=== PATIENT | male | born 2005 | race African-American/Black ===

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

== ENCOUNTER 2025-05-29 15:46 | Inpatient (IN) | payer OTHER ==
[~2025-05-29] VITALS: Ht 172.7 cm; Wt 61.2 kg
--- NOTE | 2025-05-29 16:03 | NUR ---
PACIENTE ALERTA Y ORIENTADO X3, INDICA QUE DESDE HACE KAITLIN SEMANA PRESENTA MOLESTIA EN EL PECHO AL TOSER Y AL SECRECIONES NASALES CON KENDELL. SE REALIZA EKG Y SE MONITOREAN VS.
[2025-05-29] MEDS ORDERED: METHYLPREDNISOLONE SOD SUCC 125 MG VIAL IV SCH (18:45)
[2025-05-29] MEDS ORDERED: PANTOPRAZOLE SODIUM 40 MG/VIAL VIAL IV SCH (18:45)
[2025-05-29] MEDS ORDERED: 0.9 % SODIUM CHLORIDE 1,000 ML IV SCH (18:45)
[2025-05-29] MEDS ORDERED: DEXTROSE 5 % AND 0.9 % NACL 1,000 ML IV SCH (18:45)
[2025-05-29 19:52] LABS: BASO % 0.6 % (0.1-1.2); EOS # 0.66 (0.04-0.54); EOS % 7.8 % (0.7-7.0); LYMPH # 1.31 (1.18-3.74); LYMPH % 15.6 % (19.3-53.1); MEAN PLATELET VOLUME 9.10 fl (9.4-12.4); MONO # 0.57 (0.24-0.82); MONO % 6.8 % (4.7-12.5); NEUT # 5.80 (1.56-6.13); NEUT % 69.0 % (34.0-71.1); RED CELL DISTRIBUTION WIDTH 13.4 % (11.6-14.4)
--- NOTE | 2025-05-29 19:55 | NUR ---
PTE ALERTA,ESTABLE Y ORIENTADO.SE EDUCA SOBRE EL TRATAMIENTO QUE RECIBIRA EN EL HOSPITAL Y BRIANNE REFIERE ENTEDNER.
[2025-05-29 20:16] LABS: INR 1.08
[2025-05-29 20:24] LABS: ALT/SGPT 23.0 U/L (12-78); AST/SGOT 18.0 U/L (15-37); BILIRUBIN TOTAL 0.35 mg/dL (0.3-1.2); BUN CREA RATIO 11.0 (7.0-25.0); CREATININE SERUM 0.97 mg/dL (0.70-1.30); GFR 98.67; GLOBULINA 3.8 G/DL (2.4-3.5); GLUCOSE FASTING 96.0 mg/dL (65-100); OSMOLALITY SERUM 279.0 MOSM/KG (275-295)
[2025-05-29 20:43] LABS: COVID-19 AG NEGATIVE (NEGATIVE)
[2025-05-29] MEDS ORDERED: LEVALBUTEROL HCL 1.25 MG/3 ML SOLUTION IH STA (22:58)
[2025-05-29] MEDS ORDERED: LEVALBUTEROL HCL 1.25 MG/3 ML SOLUTION IH SCH (23:00)
[2025-05-29] MEDS ORDERED: CEFTRIAXONE SODIUM 2,000 MG VIAL IV ONE (23:00)
[2025-05-29] MEDS ORDERED: METHYLPREDNISOLONE SOD SUCC 40 MG VIAL IV SCH (23:15)
--- NOTE | 2025-05-30 01:48 | NUR ---
PTE ALERTA Y ORIENTADO X3 EN COMPANIA SE PATTEN PADRE. SE ADMINISTRA MEDICAMENTO MIGNON ORDEN MEDICA Y BAJO MEDIDAS ASEPTICAS. NO SE OBSERVA REACCION ALERGICA AL MOMENTO. SE NOTIFICAN TR.
[2025-05-30 02:13] LABS: COCAINE NEGATIVE (NEGATIVE); METHADONE NEGATIVE (NEGATIVE); OPIATES NEGATIVE (NEGATIVE); THC ( Cannabinoids) NEGATIVE (NEGATIVE)
--- NOTE | 2025-05-30 02:16 | NUR ---
PTE REHUSA REALIZARSE LOS ABG'S .SE LE NOTIFICA A EL KOBE ALMENDARE[place]. SE MANTIENE BAJO OBSERVACION.
--- NOTE | 2025-05-30 05:27 | NUR ---
SE ORIENTA PACIENTE Y FAMILIAR SOBRE TX MEDICO Y ESTOS REFIEREN ENTENDER Y ACEPTAR EL MISMO. SE PROCEDE A BANDAR MUESTRAS DE LAB. BAJO MEDIDAS ASEPTICAS, DANILO DE EDEMA Y ERITEMA.
--- NOTE | 2025-05-30 07:07 | NUR ---
SE RECIBE PTE ALERTA Y ORIENTADO X3 EN CAMA BAJA CON BARANDAS LEVADAS EN COMPANIA DE FAMILIAR. PTE CANALIZADO EN BRAZO DERECHO CON ANGIO #20 PATENTE DANILO DE EDEMA Y ENROJECIMIENTO. RECIBIENDO D5W/.9NSS BAJANDO A 100MLS/HR. PENDIENTE RE-EVALUACION MEDICA.
--- NOTE | 2025-05-30 08:00 | NUR ---
PTE. COMIENZA CON VOMITOS CON KENDELL. DRA. TAFOYA RE-EVALUA PTE.SE ORIENTA SOBRE TRATAMIENTO, MUESTRA TOMADA Y SE ENVIA AL LABORATORIO.
[2025-05-30 08:21] LABS: BASO % 0.2 % (0.1-1.2); EOS # 0.02 (0.04-0.54); EOS % 0.2 % (0.7-7.0); LYMPH # 0.82 (1.18-3.74); LYMPH % 8.7 % (19.3-53.1); MEAN PLATELET VOLUME 9.40 fl (9.4-12.4); MONO # 0.44 (0.24-0.82); MONO % 4.7 % (4.7-12.5); NEUT # 8.09 (1.56-6.13); NEUT % 86.0 % (34.0-71.1); RED CELL DISTRIBUTION WIDTH 13.5 % (11.6-14.4)
[2025-05-30] MEDS ORDERED: CEFTRIAXONE SODIUM 1,000 MG VIAL IV SCH (10:24)
[2025-05-30 10:34] VITALS: BP 115/68
[2025-05-30] MEDS ORDERED: 0.9 % SODIUM CHLORIDE 1,000 ML IV SCH (10:45)
[2025-05-30] MEDS ORDERED: METHYLPREDNISOLONE SOD SUCC 40 MG VIAL IV SCH ×2 (10:45→18:00)
--- NOTE | 2025-05-30 11:22 | NUR ---
DRA. TAFOYA RE-EVALUA PTE. Y ADMITE A SERVICIO DE DR. WILDER. SE ORIENTA SOBRE TRATAMIENTO, MEDICAMENTOS Y ADMISION . ORDENES DE ADMISION TOMADAS, FAMILIAR HACE ARREGLOS DE ADMISION. MUESTRA TOMADA Y SE ENVIA AL LABORATORIO, MEDICAMENTOS ADM. MIGNON ORDEN MEDICA CONSULTA NOTIFICADA A DR. LEWIS Y SE MILAGROS PTE. BAJO OBSERVACION POR CAMBIO.
--- NOTE | 2025-05-30 11:32 | NUR ---
DIETA REQUISADA Y TERAPIA NOTIFICADA A MRS. HASTINGS.
[2025-05-30] MEDS ORDERED: LEVALBUTEROL HCL 1.25 MG/3 ML SOLUTION IH SCH (13:00)
--- NOTE | 2025-05-30 16:21 | NUR ---
PACIENTE SE ENTREGA PACIENTE A RN WEISS EN PEDIATRIA, SE UBICA EN CUARTO 4A DANILO COMPLICACIONES POR TRASLADO.
[2025-05-30 17:02] VITALS: BP 120/73; O2SAT 100
[2025-05-30 17:07] LABS: ABG PH 7.433 (7.35-7.45); ABG PO2 104.2 mmHg (80-100); BICARBONATE 23.1 mmol/l (23-25)
[2025-05-30 17:09] LABS: o2 21 %
[2025-05-30] MEDS ORDERED: AZITHROMYCIN 500 MG VIAL IV SCH (19:09)
[2025-05-30] MEDS ORDERED: CEFTRIAXONE SODIUM 2,000 MG in 0.9 % SODIUM CHLORIDE 100 ML IV SCH (19:13)
[2025-05-30] MEDS ORDERED: PANTOPRAZOLE SODIUM 40 MG/VIAL VIAL IV SCH (21:00)
[2025-05-30] MEDS ORDERED: IPRATROPIUM/ALBUTEROL SULFATE 3 ML AMPUL.NEB IH SCH (21:00)
[2025-05-30] MEDS ORDERED: IPRATROPIUM/ALBUTEROL SULFATE 3 ML AMPUL.NEB IH ONE (21:15)
[2025-05-31] VITALS: BP 119/69; O2SAT 98
[2025-05-31 08:25] VITALS: BP 120/75; O2SAT 99
[2025-05-31] MEDS ORDERED: 0.9 % SODIUM CHLORIDE 1,000 ML IV SCH (09:00)
[2025-05-31] MEDS ORDERED: METHYLPREDNISOLONE SOD SUCC 40 MG VIAL IV SCH (09:00)
[2025-05-31] MEDS ORDERED: CEFTRIAXONE SODIUM 2,000 MG VIAL ONE (15:27)
[2025-05-31 16:00] VITALS: BP 124/79; O2SAT 99
[2025-05-31] MEDS ORDERED: CEFTRIAXONE SODIUM 2,000 MG in 0.9 % SODIUM CHLORIDE 100 ML IV SCH (17:00)
[2025-06-01 00:25] VITALS: BP 121/63; O2SAT 100
[2025-06-01 08:00] VITALS: BP 129/81; O2SAT 98
[2025-06-01 15:34] VITALS: BP 121/65; O2SAT 100
[2025-06-01] MEDS ORDERED: ACETAMINOPHEN 500 MG GEL..CAP PO PRN (16:00)
[2025-06-01] MEDS ORDERED: METHYLPREDNISOLONE SOD SUCC 40 MG VIAL IV SCH (17:00)
[2025-06-02 03:56] VITALS: BP 118/77; O2SAT 99
[2025-06-02 07:25] LABS: ALT/SGPT 31.0 U/L (12-78); AST/SGOT 9.0 U/L (15-37); BILIRUBIN TOTAL 0.51 mg/dL (0.3-1.2); BUN CREA RATIO 19.0 (7.0-25.0); CREATININE SERUM 0.8 mg/dL (0.70-1.30); GFR 123.24; GLOBULINA 3.5 G/DL (2.4-3.5); GLUCOSE FASTING 103.0 mg/dL (65-100); OSMOLALITY SERUM 280.0 MOSM/KG (275-295)
[2025-06-02 08:00] VITALS: BP 128/77; O2SAT 100
[2025-06-02 09:00] VITALS: BP 127/84; O2SAT 98
[2025-06-02] MEDS ORDERED: METHYLPREDNISOLONE SOD SUCC 40 MG VIAL IV SCH (09:00)
[2025-06-02 16:00] VITALS: BP 129/79; O2SAT 97
[2025-06-02 23:21] VITALS: BP 120/80; O2SAT 98
[2025-06-03 10:53] VITALS: BP 119/72; O2SAT 100
== END 2025-06-03 13:34 | disposition home or self-care (01) | DRG 202 ==
LOC: ER 15:46 → EMR PED 15:55 → PED 05-30 12:18
PROVIDERS: Emergency Medicine Pediatric Emergency Medicine; Internal Medicine; Pediatrics; ADMIT Emergency Medicine; ATTEND Emergency Medicine
PROC: 4A033R1 Measurement of Arterial Saturation, Peripheral, Percutaneous Approach (ICD-10-PCS; principal; 2025-05-30)
PROC: 3E0F7GC Introduction of Other Therapeutic Substance into Respiratory Tract, Via Natural or Artificial Opening (ICD-10-PCS; 2025-05-30)
PROC: 8E0ZXY6 Isolation (ICD-10-PCS; 2025-05-30)
DX: J40 Bronchitis, not specified as acute or chronic (principal); R04.2 Hemoptysis